=== PATIENT | female | born 1945 | race Caucasian/White ===

== ENCOUNTER 2018-10-20 18:35 | Emergency (ER) | payer MEDICARE, OTHER ==
[~2018-10-20] VITALS: Ht 157.5 cm; Wt 102.1 kg
[~2018-10-20 18:35] MED LIST: ALBU2.5V8 INH; ALLO100T PO; ALPR0.5T PO; ARIP10TA9 PO; ASPI81TA59 PO; ATOR40TA PO; FURO-69 PO; LEVO25TA4 PO; MAGN400T22 PO; METO25TA4 PO; OMEP20TA63 PO; POTA20TA4 PO; PRED20TA PO; VENL37.5 PO
--- NOTE | 2018-10-20 18:40 | ED.ADGEN ---
Past History Past Medical History: A-Fib, Bronchitis, COPD, Depression, Hypertension, Other Past Surgical History: Coronary Bypass Surgery, Alcohol Use: None Drug Use: None Adult General Chief Complaint Chief Complaint ".. I ... can't .... breath.... HPI HPI Patient is a 73 year old female who presents with respiratory failure. Pt. Hypoxic on presentation in severe respiratory distress. Pt. has hx of chronic bronchitis, COPD, HTN, CADz with CAGB, CHF and DM.. Patient reportedly on oral anticoagulant. Pt required prompt placement of BIPAP to raise her saturation. Initial blood gas 7.19/CO2 42.5/PO2 at 85/ HCOe 16.5. Pt Hx. recent URI. Dyspnea so severe unable to obtain further Hx. Pt gradually improved with BiPAP and eventually improved. Discussed presentation, testing and tx. plan with Dr. Jordan- to be transferred to [facility] for further eval and tx. . Consults Pul. and Cardiology. Pt. normally follows with Dr. Mendez Beebe. Review of Systems Review of Systems Unable to obtain- Severe Respiratory Failure . Acute changes as documented in this note. Family History Family History Not currently available Current Medications Current Medications Current Medications Medications (Trade) Dose Ordered Sig/Blair Start Time Stop Time Status Last Admin Dose Admin Albuterol/ Ipratropium (Duoneb) 3 ml STK-MED ONCE 10/20/18 18:46 10/21/18 02:18 DC Aspirin (Children'S Aspirin) 324 mg 1X ONCE 10/20/18 18:45 10/20/18 18:53 DC Azithromycin (Zithromax) 500 mg 1X ONCE 10/20/18 18:45 10/20/18 18:53 DC 10/20/18 19:09 500 MG Ceftriaxone Sodium 1 gm/ Sodium Chloride 50 ml @ 100 mls/hr 1X ONCE 10/20/18 18:45 10/20/18 19:14 DC 10/20/18 18:45 100 MLS/HR Ceftriaxone Sodium (Rocephin) 1 gm STK-MED ONCE 10/20/18 19:01 10/21/18 02:18 DC Enoxaparin Sodium (Lovenox 150mg Syringe) 150 mg 1X ONCE 10/20/18 21:30 10/20/18 21:30 DC Furosemide (Lasix) 40 mg 1X ONCE 10/20/18 21:00 10/20/18 21:02 DC 10/20/18 21:29 40 MG Lactated Ringer's 1,000 ml @ 100 mls/hr Q10H 10/20/18 18:41 10/21/18 04:13 DC 10/20/18 18:41 100 MLS/HR Methylprednisolone Sodium Succinate (SOLU-Medrol 125MG VIAL) 125 mg 1X ONCE 10/20/18 18:45 10/20/18 18:54 DC 10/20/18 19:08 125 MG Sodium Chloride 50 ml @ As Directed STK-MED ONCE 10/20/18 19:00 10/21/18 02:18 DC Allergies Allergies Allergies Coded Allergies Type Severity Reaction Last Updated Verified No Known Drug Allergies 09/03/16 No Physical Exam Physical Exam Constitutional: In severe respiratory distress,pre-morbid, very ill appearance. [] HENT: Normocephalic, atraumatic, bilateral external ears normal, oropharynx moist, no oral exudates, nose swollen turbinates and rhinorrhea. Eyes: PERRLA, EOMI, conjunctiva normal, no discharge. [] Periorbital edema. Neck: Normal range of motion, no tenderness, supple, no stridor. [] Cardiovascular:Tachycardia Heart rate ill regular rhythm, PMI to Lt. frequent PVCs on monitor Lungs & Thorax: Bilateral breath wheezes, rhonchi and crackles throughout on auscultation [] Abdomen: Bowel sounds normal, soft, no tenderness, no masses, no pulsatile masses. Obese. Old scars. Skin: Warm, diaphoretic, no erythema, no rash. [] Back: No tenderness, no CVA tenderness. Arthritic changes Extremities: No tenderness, no cyanosis, no clubbing, ROM intact, bilateral edema. [] No cording appreciated. Neurologic: Confused, Move ext. on requestm no gross focal deficits noted. [] Psychologic: Affect very anxious Current Patient Data Vital Signs Vital Signs Date Time Temp Pulse Resp B/P (MAP) Pulse Ox O2 Delivery O2 Flow Rate FiO2 10/20/18 22:30 99 20 113/61 (78) 95 BiPAP/CPAP 10/20/18 19:18 3.0 10/20/18 18:35 98.3 Lab Results Laboratory Tests Test 10/20/18 18:44 2/11/19 18:48 10/20/18 19:45 10/20/18 20:10 Blood pH 7.20 (7.35-7.45) L Blood Gas PCO2 43 mmHg (35-45) Blood Gas PO2 85 mmHg (71-100) Blood Gas HCO3 17 mmol/L (22-26) L Arterial Bld O2 Saturation (Calc) 94 % (92-99) FiO2 32 % Prothrombin Time 11.5 SEC (9.4-11.4) H Prothrombin Time INR 1.2 (0.9-1.1) H PTT 29 SEC (23-33) D-Dimer (Rebeca) 0.70 mg/L (0.00-0.50) H Sodium Level 142 mmol/L (136-145) Potassium Level 3.8 mmol/L (3.5-5.1) Chloride Level 103 mmol/L (98-107) Carbon Dioxide Level 24 mmol/L (21-32) Anion Gap 15 (6-14) H Blood Urea Nitrogen 12 mg/dL (7-20) Creatinine 1.4 mg/dL (0.6-1.0) H Estimated GFR (Cockcroft-Gault) 37.0 Glucose Level 171 mg/dL (70-99) H Calcium Level 9.0 mg/dL (8.5-10.1) Magnesium Level 2.0 mg/dL (1.8-2.4) Total Bilirubin 0.3 mg/dL (0.2-1.0) Direct Bilirubin 0.1 mg/dL (0.0-0.2) Aspartate Amino Transferase (AST) 21 U/L (15-37) Alanine Aminotransferase (ALT) 14 U/L (14-59) Alkaline Phosphatase 88 U/L (46-116) Creatine Kinase 74 U/L (26-192) Troponin I Quantitative < 0.017 ng/mL (0-0.055) GZ-Rum-L-Type Natriuretic Peptide 3968 pg/mL (0-124) H Total Protein 7.8 g/dL (6.4-8.2) Albumin 3.4 g/dL (3.4-5.0) Lipase 138 U/L (73-393) Thyroid Stimulating Hormone (TSH) 2.979 uIU/mL (0.358-3.740) White Blood Count 16.5 x10^3/uL (4.0-11.0) H Red Blood Count 5.24 x10^6/uL (3.50-5.40) Hemoglobin 13.4 g/dL (12.0-15.5) Hematocrit 43.1 % (36.0-47.0) Mean Corpuscular Volume 82 fL (79-100) Mean Corpuscular Hemoglobin 26 pg (25-35) Mean Corpuscular Hemoglobin Concent 31 g/dL (31-37) Red Cell Distribution Width 19.1 % (11.5-14.5) H Platelet Count 288 x10^3/uL (140-400) Neutrophils (%) (Auto) 68 % (31-73) Lymphocytes (%) (Auto) 22 % (24-48) L Monocytes (%) (Auto) 6 % (0-9) Eosinophils (%) (Auto) 3 % (0-3) Basophils (%) (Auto) 1 % (0-3) Neutrophils # (Auto) 11.2 x10^3uL (1.8-7.7) H Lymphocytes # (Auto) 3.7 x10^3/uL (1.0-4.8) Monocytes # (Auto) 1.0 x10^3/uL (0.0-1.1) Eosinophils # (Auto) 0.5 x10^3/uL (0.0-0.7) Basophils # (Auto) 0.1 x10^3/uL (0.0-0.2) Influenza Type A (Rapid) Negative (NEGATIVE) Influenza Type B (Rapid) Negative (NEGATIVE) Group A Streptococcus Rapid Negative (NEGATIVE) Test 10/20/18 22:00 Urine Collection Type Unknown Urine Color Straw Urine Clarity Clear Urine pH 6.0 Urine Specific [place] 1.015 Urine Protein 100 mg/dl (NEG-TRACE) Urine Glucose (UA) Neg mg/dL (NEG) Urine Ketones (Stick) Neg mg/dL (NEG) Urine Blood Trace (NEG) Urine Nitrite Neg (NEG) Urine Bilirubin Neg (NEG) Urine Urobilinogen Dipstick 0.2 mg/dL (0.2 mg/dL) Urine Leukocyte Esterase Neg (NEG) Urine RBC Occ /HPF (0-2) Urine WBC 1-4 /HPF (0-4) Urine Squamous Epithelial Cells Few /LPF Urine Bacteria Few /HPF (0-FEW) Urine Opiates Screen Neg (NEG) Urine Methadone Screen Neg (NEG) Urine Barbiturates Neg (NEG) Urine Phencyclidine Screen Neg (NEG) Urine Amphetamine/Methamphetamine Neg (NEG) Urine Benzodiazepines Screen Pos (NEG) Urine Cocaine Screen Neg (NEG) Urine Cannabinoids Screen Neg (NEG) Urine Ethyl Alcohol Neg (NEG) EKG EKG My interpretation of EKG shows a ventricular rate in the 110 irregular rate and rhythm. Occasional PVCs. Appearance somewhat of A. fib. A lot of baseline artifact due to respiratory distress[] Radiology/Procedures Radiology/Procedures My interpretation of chest x-ray shows chronic COPD type pattern with marked increase of interstitial infiltrates. Does have cardiomegaly and atelectasis. Consistent with CHF and atypical pneumonia[] Course & Med Decision Making Course & Med Decision Making Pertinent Labs and Imaging studies reviewed. (See chart for details). Discussed presentation, testing and treatment plan with - Transfer to [facility]- Pulmonary and Cardiology consults. Critical Care 90 mins. [] Final Impression Final Impression 1. Respiratory Failure Hypoxia and Hypercarbia 2. Leukocytosis 16.5 3. Pneumonia 4. CHF ACUTE ON CHRONIC BNP 3,968 5. DM 171[] 6. Elevated Creat. 1.4 7. Elevated D dimer 0.70 Dragon Disclaimer Smarterphone Disclaimer This electronic medical record was generated, in whole or in part, using a voice recognition dictation system. Discharge Summary Visit Information Final Diagnosis Problems Medical Problems: (1) COPD exacerbation Status: Acute Brief Hospital Course Allergies Allergies Coded Allergies Type Severity Reaction Last Updated Verified No Known Drug Allergies 09/03/16 No Vital Signs Vital Signs Date Time Temp Pulse Resp B/P (MAP) Pulse Ox O2 Delivery O2 Flow Rate FiO2 10/20/18 22:30 99 20 113/61 (78) 95 BiPAP/CPAP 10/20/18 19:18 3.0 10/20/18 18:35 98.3 Lab Results Laboratory Tests Test 10/20/18 18:44 10/20/18 18:48 10/20/18 19:45 10/20/18 20:10 Blood Gas pH 7.20 (7.35-7.45) Blood Gas PCO2 43 mmHg (35-45) Blood Gas PO2 85 mmHg (71-100) Blood Gas HCO3 17 mmol/L (22-26) Arterial Bld O2 Saturation (Calc) 94 % (92-99) FiO2 32 % Prothrombin Time 11.5 SEC (9.4-11.4) Prothromb Time International Ratio 1.2 (0.9-1.1) Activated Partial Thromboplast Time 29 SEC (23-33) D-Dimer (Rebeca) 0.70 mg/L (0.00-0.50) Sodium Level 142 mmol/L (136-145) Potassium Level 3.8 mmol/L (3.5-5.1) Chloride Level 103 mmol/L (98-107) Carbon Dioxide Level 24 mmol/L (21-32) Anion Gap 15 (6-14) Blood Urea Nitrogen 12 mg/dL (7-20) Creatinine 1.4 mg/dL (0.6-1.0) Estimated GFR (Cockcroft-Gault) 37.0 Glucose Level 171 mg/dL (70-99) Calcium Level 9.0 mg/dL (8.5-10.1) Magnesium Level 2.0 mg/dL (1.8-2.4) Total Bilirubin 0.3 mg/dL (0.2-1.0) Direct Bilirubin 0.1 mg/dL (0.0-0.2) Aspartate Amino Transf (AST/SGOT) 21 U/L (15-37) Alanine Aminotransferase (ALT/SGPT) 14 U/L (14-59) Alkaline Phosphatase 88 U/L (46-116) Creatine Kinase 74 U/L (26-192) Troponin I Quantitative < 0.017 ng/mL (0-0.055) YX-Ymi-M-Type Natriuretic Peptide 3968 pg/mL (0-124) Total Protein 7.8 g/dL (6.4-8.2) Albumin 3.4 g/dL (3.4-5.0) Lipase 138 U/L (73-393) Thyroid Stimulating Hormone (TSH) 2.979 uIU/mL (0.358-3.740) White Blood Count 16.5 x10^3/uL (4.0-11.0) Red Blood Count 5.24 x10^6/uL (3.50-5.40) Hemoglobin 13.4 g/dL (12.0-15.5) Hematocrit 43.1 % (36.0-47.0) Mean Corpuscular Volume 82 fL (79-100) Mean Corpuscular Hemoglobin 26 pg (25-35) Mean Corpuscular Hemoglobin Concent 31 g/dL (31-37) Red Cell Distribution Width 19.1 % (11.5-14.5) Platelet Count 288 x10^3/uL (140-400) Neutrophils (%) (Auto) 68 % (31-73) Lymphocytes (%) (Auto) 22 % (24-48) Monocytes (%) (Auto) 6 % (0-9) Eosinophils (%) (Auto) 3 % (0-3) Basophils (%) (Auto) 1 % (0-3) Neutrophils # (Auto) 11.2 x10^3uL (1.8-7.7) Lymphocytes # (Auto) 3.7 x10^3/uL (1.0-4.8) Monocytes # (Auto) 1.0 x10^3/uL (0.0-1.1) Eosinophils # (Auto) 0.5 x10^3/uL (0.0-0.7) Basophils # (Auto) 0.1 x10^3/uL (0.0-0.2) Influenza Type A (Rapid) Negative (NEGATIVE) Influenza Type B (Rapid) Negative (NEGATIVE) Group A Streptococcus Rapid Negative (NEGATIVE) Test 10/20/18 22:00 Urine Collection Type Unknown Urine Color Straw Urine Clarity Clear Urine pH 6.0 Urine Specific [place] 1.015 Urine Protein 100 mg/dl (NEG-TRACE) Urine Glucose (UA) Neg mg/dL (NEG) Urine Ketones (Stick) Neg mg/dL (NEG) Urine Blood Trace (NEG) Urine Nitrite Neg (NEG) Urine Bilirubin Neg (NEG) Urine Urobilinogen Dipstick 0.2 mg/dL (0.2 mg/dL) Urine Leukocyte Esterase Neg (NEG) Urine RBC Occ /HPF (0-2) Urine WBC 1-4 /HPF (0-4) Urine Squamous Epithelial Cells Few /LPF Urine Bacteria Few /HPF (0-FEW) Urine Opiates Screen Neg (NEG) Urine Methadone Screen Neg (NEG) Urine Barbiturates Neg (NEG) Urine Phencyclidine Screen Neg (NEG) Urine Amphetamine/Methamphetamine Neg (NEG) Urine Benzodiazepines Screen Pos (NEG) Urine Cocaine Screen Neg (NEG) Urine Cannabinoids Screen Neg (NEG) Urine Ethyl Alcohol Neg (NEG) Brief Hospital Course Ms. Arce is a 73 old female who presented in respiratory failure. Transfer to [facility]- Dr Jordan, for Pul. and Cardiology consults. Discharge Information Condition at Discharge: Improved Disposition/Orders: D/C to Another Facility Dischare Medications Current Medications Aspirin (Children'S Aspirin) 324 mg 1X ONCE PO ; Start 10/20/18 at 18:45; Stop 10/20/18 at 18:53; Status DC Lactated Ringer's 1,000 ml @ 100 mls/hr Q10H IV Last administered on at 18:41; Admin Dose 100 MLS/HR; Start 10/20/18 at 18:41; Stop 10/21/18 at 04: 13; Status DC Methylprednisolone Sodium Succinate (SOLU-Medrol 125MG VIAL) 125 mg 1X ONCE IV Last administered on 10/20/18at 19:08; Admin Dose 125 MG; Start 10/20/18 at 18: 45; Stop 10/20/18 at 18:54; Status DC Albuterol/ Ipratropium (Duoneb) 3 ml 1X ONCE NEB Last administered on at 18:49; Admin Dose 3 ML; Start 10/20/18 at 18:45; Stop 10/20/18 at 18:53; Status DC Ceftriaxone Sodium 1 gm/ Sodium Chloride 50 ml @ 100 mls/hr 1X ONCE IV Last administered on 10/20/18at 18:45; Admin Dose 100 MLS/HR; Start 10/20/18 at 18:45 ; Stop 10/20/18 at 19:14; Status DC Azithromycin (Zithromax) 500 mg 1X ONCE PO Last administered on 10/20/18at 19: 09; Admin Dose 500 MG; Start 10/20/18 at 18:45; Stop 10/20/18 at 18:53; Status DC Furosemide (Lasix) 40 mg 1X ONCE IVP Last administered on 10/20/18at 21:29; Admin Dose 40 MG; Start 10/20/18 at 21:00; Stop 10/20/18 at 21:02; Status DC Enoxaparin Sodium (Lovenox 150mg Syringe) 150 mg 1X ONCE SQ ; Start 10/20/18 at 21:30; Stop 10/20/18 at 21:30; Status DC Albuterol/ Ipratropium (Duoneb) 3 ml STK-MED ONCE .ROUTE ; Start 10/20/18 at 18: 46; Stop 10/21/18 at 02:18; Status DC Sodium Chloride 50 ml @ As Directed STK-MED ONCE .ROUTE ; Start 10/20/18 at 19: 00; Stop 10/21/18 at 02:18; Status DC Ceftriaxone Sodium (Rocephin) 1 gm STK-MED ONCE .ROUTE ; Start 10/20/18 at 19:01 ; Stop 10/21/18 at 02:18; Status DC Active Scripts Active Proair Hfa Inhaler (Albuterol Sulfate) 8.5 Gm Hfa.aer.ad 1 Puff INH PRN Q6HRS PRN Prednisone 20 Mg Tablet 1 Tab PO BID Mag-Oxide (Magnesium Oxide) 400 Mg Tablet 400 Mg PO DAILY Reported Levothyroxine Sodium 25 Mcg Tablet 1 Tab PO DAILY06 LAST DOSE GIVEN: NOT GIVEN THIS ADMISSION NEXT DOSE DUE: DATE: RESTART TOMORROW TIME: AM Effexor Xr (Venlafaxine Hcl) 37.5 Mg Cap.er.24h 37.5 Mg PO HS LAST DOSE GIVEN: DATE: YESTERDAY TIME: AT BEDTIME NEXT DOSE DUE: DATE: TODAY TIME: AT BEDTIME Children's Aspirin (Aspirin) 81 Mg Tab.chew 81 Mg PO DAILY LAST DOSE GIVEN: DATE: TODAY TIME: AM NEXT DOSE DUE: DATE: TOMORROW TIME: AM Xanax (Alprazolam) 0.5 Mg Tablet 0.5 Mg PO PRN Q6-8HRS PRN LAST DOSE GIVEN: DATE: TODAY TIME: 0330 AM NEXT DOSE DUE: DATE: TODAY TIME: WHEN NEEDED Abilify (Aripiprazole) 10 Mg Tablet 10 Mg PO DAILY LAST DOSE GIVEN: DATE: TODAY TIME: AM NEXT DOSE DUE: DATE: TOMORROW TIME: AM Prilosec Otc (Omeprazole Magnesium) 20 Mg Tablet.dr 20 Mg PO DAILY LAST DOSE GIVEN: DATE: TODAY TIME: AM NEXT DOSE DUE: DATE: TOMORROW TIME: AM Allopurinol 100 Mg Tablet 100 Mg PO DAILY LAST DOSE GIVEN: DATE: TODAY TIME: AM NEXT DOSE DUE: DATE: TOMORROW TIME: AM Lasix (Furosemide) 20 Mg Tablet 20 Mg PO DAILY LAST DOSE GIVEN: DATE: TODAY TIME: AM NEXT DOSE DUE: DATE: TOMORROW TIME: AM Metoprolol Tartrate 25 Mg Tablet 25 Mg PO BID LAST DOSE GIVEN: DATE: TODAY TIME: AM NEXT DOSE DUE: DATE: TODAY TIME: PM Klor-Con M20 (Potassium Chloride) 20 Meq Tab.er.prt 20 Meq PO HS LAST DOSE GIVEN: DATE: YESTERDAY TIME: AT BEDTIME NEXT DOSE DUE: DATE: TODAY TIME: AT BEDTIME Lipitor (Atorvastatin Calcium) 40 Mg Tablet 40 Mg PO QHS LAST DOSE GIVEN: DATE: YESTERDAY TIME: AT BEDTIME NEXT DOSE DUE: DATE: TODAY TIME: AT BEDTIME Uziel Disclaimer This chart was dictated in whole or in part using Voice Recognition software in a busy, high-work load, and often noisy Emergency Department environment. It may contain unintended and wholly unrecognized errors or omissions. ANNA PELAYO MD Oct 20, 2018 18:40
[2018-10-20] MEDS ORDERED: IV RINGERS SOLUTION,LACTATED 1,000 ML IV SCH (18:41)
[2018-10-20] MEDS ORDERED: ASPIRIN 81 MG TAB.CHEW PO ONE (18:45)
[2018-10-20] MEDS ORDERED: AZITHROMYCIN 250 MG TABLET. PO ONE (18:45)
[2018-10-20] MEDS ORDERED: methylPREDNISolone SOD SUCC PF 125 MG/2 ML VIAL. IV ONE (18:45)
[2018-10-20] MEDS ORDERED: IPRATRPIUM/ALBUTEROL 0.5/2.5MG 3 ML NEBU. NEB ONE (18:45)
[2018-10-20] MEDS ORDERED: IPRATRPIUM/ALBUTEROL 0.5/2.5MG 3 ML NEBU. ONE (18:46)
[2018-10-20] MEDS ORDERED: IV NORMAL SALINE 50ML 50 ML ONE (19:00)
[2018-10-20] MEDS ORDERED: cefTRIAXone SODIUM 1 GM VIAL ONE (19:01)
[2018-10-20 19:23] LABS: BGAS PH 7.2 (7.35-7.45)
[2018-10-20 19:43] LABS: ALBUMIN 3.4 g/dL (3.4-5.0); CREATININE 1.4 mg/dL (0.6-1.0); DIRECT BILIRUBIN 0.1 mg/dL (0.0-0.2); POTASSIUM 3.8 mmol/L (3.5-5.1); TOTAL BILIRUBIN 0.3 mg/dL (0.2-1.0); TOTAL PROTEIN 7.8 g/dL (6.4-8.2)
[2018-10-20 20:41] LABS: BASO # 0.1 x10^3/uL (0.0-0.2); BASO % 1 % (0-3); EOS # 0.5 x10^3/uL (0.0-0.7); EOS % 3 % (0-3); HEMATOCRIT 43.1 % (36.0-47.0); HEMOGLOBIN 13.4 g/dL (12.0-15.5); LYMPH # 3.7 x10^3/uL (1.0-4.8); LYMPH % 22 % (24-48); MEAN CORPUSCULAR HEMOGLOBIN 26 pg (25-35); MEAN CORPUSCULAR HGB CONC 31 g/dL (31-37); MEAN CORPUSCULAR VOLUME 82 fL (79-100); MONO % 6 % (0-9); NEUT # 11.2 x10^3uL (1.8-7.7); NEUT % 68 % (31-73); PLATELET COUNT 288 x10^3/uL (140-400); RED BLOOD COUNT 5.24 x10^6/uL (3.50-5.40); RED CELL DISTRIBUTION WIDTH 19.1 % (11.5-14.5); WHITE BLOOD COUNT 16.5 x10^3/uL (4.0-11.0)
[2018-10-20 20:50] LABS: INFLUENZA A PATIENT NEGATIVE (NEGATIVE); INFLUENZA B PATIENT NEGATIVE (NEGATIVE)
[2018-10-20] MEDS ORDERED: FUROSEMIDE 40 MG/4 ML VIAL IVP ONE (21:00)
[2018-10-20] MEDS ORDERED: ENOXAPARIN ** NOTE DOSE ** SYRINGE SQ ONE (21:30)
[2018-10-20 22:30] VITALS: BP 113/61
--- NOTE | 2018-10-21 01:31 | RAD ---
PORTABLE CHEST 1V History: COPD exacerbation, dyspnea Comparison: None. Findings: AP portable view of the chest is submitted. There has been median sternotomy. Pericardial cardiac silhouette is enlarged. There is no dependent pleural fluid, pneumothorax, lobar consolidation. There is some linear likely atelectasis of the mid right hemithorax. There is interstitial opacity bilaterally of uncertain chronicity. Impression: 1. There is interstitial opacity bilaterally of uncertain chronicity, component of more acute interstitial infiltrate or edema not excluded although findings could be chronic. There is enlargement of the pericardial cardiac silhouette. There is mild atelectasis on the right. Electronically signed by: Dano Mijares MD (10/20/2018 11:37 PM) [facility]
--- NOTE | 2018-10-21 01:41 | EKG ---
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
[2018-10-21 02:33] LABS: BARBITURATES NEG (NEG); BENZODIAZEPINES POS (NEG); CANNABINOIDS NEG (NEG); COCAINE NEG (NEG); METHADONE NEG (NEG); OPIATES NEG (NEG); PHENCYCLIDINE NEG (NEG)
[2018-10-21 04:15] LABS: AMPHETAMINE/METHAMPHETAMINE NEG (NEG)
[2018-10-21 04:17] LABS: BACTERIA,URINE FEW /HPF (0-FEW); BILIRUBIN,URINE NEG (NEG); CLARITY,URINE CLEAR; COLOR,URINE STRAW; GLUCOSE,URINE NEG (NEG); NITRITE,URINE NEG (NEG); RBC,URINE OCC /HPF (0-2); SQUAMOUS EPITHELIAL CELL,UR FEW /LPF; UROBILINOGEN,URINE 0.2 mg/dL (0.2 mg/dL)
== END 2018-10-20 23:06 | disposition short-term general hospital (02) ==
LOC: ER 18:35
DX: J96.91 Respiratory failure, unspecified with hypoxia (principal); J96.92 Respiratory failure, unspecified with hypercapnia; J44.0 Chronic obstructive pulmonary disease with (acute) lower respiratory infection; J18.9 Pneumonia, unspecified organism; J44.1 Chronic obstructive pulmonary disease with (acute) exacerbation; D72.829 Elevated white blood cell count, unspecified; E11.9 Type 2 diabetes mellitus without complications; I11.0 Hypertensive heart disease with heart failure; I50.23 Acute on chronic systolic (congestive) heart failure; R79.1 Abnormal coagulation profile; R79.89 Other specified abnormal findings of blood chemistry; I48.91 Unspecified atrial fibrillation; Z95.2 Presence of prosthetic heart valve; Z95.1 Presence of aortocoronary bypass graft
CPT/HCPCS: 36415; 51702; 71045; 80048; 80076; 80307; 81001; 82550; 82803; 83690; 83735; 83880; 84443; 84484; 85025; 85379; 85610; 85730; 87040; 87070; 87804; 87880; 93005; 94640; 96365; 96375; 99285; J0456; J0696; J1940; J2930; J7120; J7620